=== PATIENT | male | born 1940 | race Caucasian/White ===

== ENCOUNTER → 2016-07-07 | Outpatient (CLI) | payer BC | END | disposition home or self-care (01) | LOC: LAB 11:02 | PROVIDERS: ATTEND Urology | DX: C61 Malignant neoplasm of prostate (principal); R97.20 Elevated prostate specific antigen [PSA] | CPT/HCPCS: 84153 ==

== ENCOUNTER 2016-08-08 10:09 | Inpatient (IN) | payer BC ==
[~2016-08-08] VITALS: Ht 180.3 cm; Wt 100.4 kg
[2016-08-08] MEDS ORDERED: SODIUM CHLORIDE 0.9% 1,000 ML IV ONE (10:56)
[2016-08-08] MEDS ORDERED: cloNIDine HCL 0.1 MG TAB PO ONE (11:30)
[2016-08-08 11:39] LABS: Hematocrit 34.9 % (41.0-53.0); Hemoglobin 11.4 g/dL (13.5-17.5); Mean Corpuscular Hgb Conc. 32.7 g/dL (32.0-36.0); Mean Corpuscular Volume 88.8 fL (80.0-100.0); Mean Platelet Volume 8.3 fL (7.4-10.4); Platelet Count (auto) 510 10^3/uL (140-450); Red Cell Distribution Width 17.1 % (11.6-16.0); SUSPECT VIEW TRANSMISSION; White Blood Cell 23.5 10^3/uL (4.4-10.8)
[2016-08-08 11:52] LABS: Partial Thromboplastin Time 27.2 sec (22.64-33.71)
[2016-08-08 11:55] LABS: Metamyelocytes % 0; Myelocytes % 0; Promyelocytes % 0; Reactive Lymphocytes 0
[2016-08-08 11:56] LABS: INR 1.25 (0.9-1.15); Prothrombin Time 12.9 sec (9.37-12.3)
[2016-08-08 11:59] LABS: Albumin 2.3 g/dL (3.4-5.0); Alkaline Phosphatase 836 U/L (45-117); Amylase 32 U/L (25-115); Anion Gap 18 (5-15); Aspartate Aminotransferase 97 U/L (15-37); Blood Urea Nitrogen 34 mg/dL (7-18); Calcium 9.1 mg/dL (8.5-10.1); Carbon Dioxide 22 mmol/L (21-32); Chloride 101 mmol/L (98-107); GFR African American 59 mL/min; GFR Non-African American 49 mL/min; Glucose 159 mg/dL (74-106); Potassium 3.8 mmol/L (3.5-5.1); Sodium 141 mmol/L (136-145); Total Protein 7.8 g/dL (6.4-8.2)
[2016-08-08] MEDS ORDERED: METOPROLOL TARTRATE 25 MG TAB PO ONE (13:00)
[2016-08-08] MEDS ORDERED: DEXTROSE (50%) 50ML SYRG IV PRN (13:00)
[2016-08-08] MEDS ORDERED: amLODIPine BESYLATE 5 MG TAB PO ONE (13:00)
[2016-08-08] MEDS ORDERED: FUROSEMIDE 40 MG/4 ML VIAL IV ONE (13:00)
[2016-08-08 13:32] LABS: Platelet Estimate Increased
[2016-08-08] MEDS: cefTRIAXone 1GM/50ML D5W 50 ML IV SCH (13:51)
[2016-08-08] MEDS: metroNIDAZOLE 500MG/100ML 100 ML IV SCH ×2 (17:14→21:53)
[2016-08-08] MEDS: PANTOPRAZOLE 40 MG TAB PO SCH ×2 (17:17→21:53)
[2016-08-08] MEDS: ACCU-CHEK COMFORT CURVE STRIP VI SCH (17:19)
[2016-08-08] MEDS: InsuLIN REG 1unit/0.01ml Soln (100units/ml) SC SCH (17:29)
[2016-08-08 18:13] VITALS: BP 162/87
[2016-08-08] MEDS ORDERED: GLYB5TAB8 PO (18:32)
[2016-08-08] MEDS ORDERED: METF-312 PO (18:32)
[2016-08-08] MEDS ORDERED: TRIA37.575 PO (18:32)
[2016-08-08] MEDS ORDERED: LISI-646 PO (18:32)
[2016-08-08] MEDS: METOPROLOL TARTRATE 25 MG TAB PO SCH (21:53)
[2016-08-08 22:00] VITALS: BP 152/74
[2016-08-09] MEDS: ACCU-CHEK COMFORT CURVE STRIP VI SCH ×5 (00:51→23:46)
[2016-08-09] MEDS: InsuLIN REG 1unit/0.01ml Soln (100units/ml) SC SCH ×5 (00:53→23:46)
[2016-08-09 05:00] VITALS: BP 199/100
[2016-08-09] MEDS: metroNIDAZOLE 500MG/100ML 100 ML IV SCH ×3 (05:36→21:33)
[2016-08-09] MEDS: cloNIDine HCL 0.1 MG TAB PO PRN (05:37)
[2016-08-09 06:21] LABS: Partial Thromboplastin Time 29.1 sec (22.64-33.71)
[2016-08-09 06:26] LABS: INR 1.22 (0.9-1.15); Prothrombin Time 12.6 sec (9.37-12.3)
[2016-08-09 09:00] VITALS: BP 158/88
[2016-08-09] MEDS: FUROSEMIDE 40 MG/4 ML VIAL IV SCH (09:28)
[2016-08-09] MEDS: amLODIPine BESYLATE 5 MG TAB PO SCH (09:29)
[2016-08-09] MEDS: PANTOPRAZOLE 40 MG TAB PO SCH ×2 (09:29→21:32)
[2016-08-09] MEDS: METOPROLOL TARTRATE 25 MG TAB PO SCH ×2 (09:30→21:33)
[2016-08-09] MEDS: cefTRIAXone 1GM/50ML D5W 50 ML IV SCH (09:31)
[2016-08-09] MEDS ORDERED: INFLUENZA QUAD 2016-2017 0.5 ML SYRG IM ONE (10:00)
[2016-08-09] MEDS ORDERED: PNEUMOCOCCAL VACC POLYS 25 MCG/0.5 ML VIAL IM ONE (10:00)
[2016-08-09] MEDS ORDERED: LIDOCAINE 2%HCL (LOCAL ANESTH.) INJ 20ML MDV ONE (12:46)
[2016-08-09] MEDS ORDERED: fentaNYL CITRATE 100 MCG/2 ML VL ONE (12:46)
[2016-08-09] MEDS ORDERED: MIDAZOLAM HCL 1MG/1ML-2 ML VIAL ONE (12:46)
[2016-08-09 13:00] VITALS: BP 193/103
[2016-08-09 15:46] LABS: Urine Bilirubin Negative (Negative); Urine Blood Negative /uL (Negative); Urine Color Yellow (Yellow); Urine Glucose Normal (Normal); Urine Hyaline Cast FEW /lpf (0 - 2); Urine Ketone Negative (Negative); Urine Mucus FEW (None Seen); Urine Nitrite Negative (Negative); Urine RBC <1 /hpf (0 - 3); Urine Urobilinogen Normal (Negative)
[2016-08-09 17:00] VITALS: BP 148/86
[2016-08-09 22:00] VITALS: BP 147/77
[2016-08-10] VITALS (7 sets, daily range): BP systolic 141–179; BP diastolic 66–86
[2016-08-10] MEDS: metroNIDAZOLE 500MG/100ML 100 ML IV SCH (05:22)
[2016-08-10] MEDS: cloNIDine HCL 0.1 MG TAB PO PRN (05:23)
[2016-08-10] MEDS: ACCU-CHEK COMFORT CURVE STRIP VI SCH ×3 (05:51→18:16)
[2016-08-10] MEDS: InsuLIN REG 1unit/0.01ml Soln (100units/ml) SC SCH ×3 (06:15→18:16)
[2016-08-10 06:39] LABS: Basophils # (auto) 0 uL; Basophils % (auto) 0.2 % (0.0-2.0); Eosinophils # (auto) 0.3 uL; Hematocrit 33.3 % (41.0-53.0); Hemoglobin 10.9 g/dL (13.5-17.5); Lymphocytes # (auto) 0.8 uL; Lymphocytes % (auto) 4.8 % (10.0-50.0); Mean Corpuscular Hemoglobin 29.2 pg (28.0-32.0); Mean Corpuscular Hgb Conc. 32.8 g/dL (32.0-36.0); Mean Platelet Volume 8.7 fL (7.4-10.4); Monocytes # (auto) 1.1 uL; Neutrophils # (auto) 15.3 uL; Platelet Count (auto) 470 10^3/uL (140-450); Red Cell Distribution Width 16.8 % (11.6-16.0); White Blood Cell 17.5 10^3/uL (4.4-10.8)
[2016-08-10 06:40] LABS: BUN/Creatinine Ratio 16.6; Calcium 8.1 mg/dL (8.5-10.1); Potassium 3.2 mmol/L (3.5-5.1)
[2016-08-10 06:43] LABS: Bilirubin, Total 0.7 mg/dL (0.2-1.0); Total Protein 6.7 g/dL (6.4-8.2)
[2016-08-10] MEDS: FUROSEMIDE 40 MG/4 ML VIAL IV SCH (10:06)
[2016-08-10] MEDS: cefTRIAXone 1GM/50ML D5W 50 ML IV SCH (10:06)
[2016-08-10] MEDS: amLODIPine BESYLATE 5 MG TAB PO SCH (10:07)
[2016-08-10] MEDS: PANTOPRAZOLE 40 MG TAB PO SCH ×2 (10:07→22:01)
[2016-08-10] MEDS: METOPROLOL TARTRATE 25 MG TAB PO SCH ×2 (10:07→22:01)
[2016-08-10] MEDS ORDERED: POTASSIUM CHL 20 Meq TABLET PO ONE (13:15)
[2016-08-10] MEDS: metroNIDAZOLE 500 MG TAB PO SCH ×2 (14:00→22:01)
[2016-08-10] MEDS: FLORASTOR (S. BOULARDII) 250 MG CAP PO SCH (22:00)
[2016-08-11] VITALS (7 sets, daily range): BP systolic 155–175; BP diastolic 77–89
[2016-08-11] MEDS: metroNIDAZOLE 500 MG TAB PO SCH ×3 (05:11→22:33)
[2016-08-11 05:32] LABS: Basophils # (auto) 0 uL; Basophils % (auto) 0.2 % (0.0-2.0); Eosinophils # (auto) 0.3 uL; Eosinophils % (auto) 1.9 % (0.0-7.0); Hematocrit 30.8 % (41.0-53.0); Hemoglobin 9.9 g/dL (13.5-17.5); Lymphocytes # (auto) 0.8 uL; Mean Corpuscular Hemoglobin 28.7 pg (28.0-32.0); Mean Corpuscular Hgb Conc. 32.2 g/dL (32.0-36.0); Mean Corpuscular Volume 89.2 fL (80.0-100.0); Mean Platelet Volume 8.6 fL (7.4-10.4); Monocytes # (auto) 1.1 uL; Monocytes % (auto) 6.6 % (0.0-12.0); Neutrophils # (auto) 14.7 uL; Neutrophils % (auto) 86.3 % (37.0-80.0); Platelet Count (auto) 438 10^3/uL (140-450)
[2016-08-11 05:52] LABS: Calcium 7.8 mg/dL (8.5-10.1); Potassium 3.1 mmol/L (3.5-5.1)
[2016-08-11] MEDS: ACCU-CHEK COMFORT CURVE STRIP VI SCH ×5 (05:59→23:26)
[2016-08-11] MEDS: InsuLIN REG 1unit/0.01ml Soln (100units/ml) SC SCH ×5 (06:02→23:30)
[2016-08-11] MEDS ORDERED: POTASSIUM CHL 20 Meq TABLET PO ONE (10:15)
[2016-08-11] MEDS: amLODIPine BESYLATE 5 MG TAB PO SCH (10:44)
[2016-08-11] MEDS: FLORASTOR (S. BOULARDII) 250 MG CAP PO SCH ×2 (10:44→22:31)
[2016-08-11] MEDS: PANTOPRAZOLE 40 MG TAB PO SCH ×2 (10:44→22:33)
[2016-08-11] MEDS: METOPROLOL TARTRATE 25 MG TAB PO SCH ×2 (10:45→22:33)
[2016-08-12] VITALS (7 sets, daily range): BP systolic 104–166; BP diastolic 71–90
[2016-08-12] MEDS: ACCU-CHEK COMFORT CURVE STRIP VI SCH ×3 (06:08→18:00)
[2016-08-12] MEDS: InsuLIN REG 1unit/0.01ml Soln (100units/ml) SC SCH ×3 (06:11→18:00)
[2016-08-12] MEDS: metroNIDAZOLE 500 MG TAB PO SCH ×3 (06:12→21:09)
[2016-08-12 07:23] LABS: Basophils # (auto) 0 uL; Basophils % (auto) 0.2 % (0.0-2.0); Eosinophils # (auto) 0.4 uL; Hematocrit 31.9 % (41.0-53.0); Hemoglobin 10.3 g/dL (13.5-17.5); Lymphocytes # (auto) 0.9 uL; Lymphocytes % (auto) 4.7 % (10.0-50.0); Mean Corpuscular Hemoglobin 28.9 pg (28.0-32.0); Mean Corpuscular Hgb Conc. 32.5 g/dL (32.0-36.0); Mean Corpuscular Volume 89.2 fL (80.0-100.0); Mean Platelet Volume 8.5 fL (7.4-10.4); Monocytes # (auto) 1.1 uL; Monocytes % (auto) 5.8 % (0.0-12.0); Neutrophils # (auto) 16.7 uL; Neutrophils % (auto) 87.3 % (37.0-80.0); Platelet Count (auto) 453 10^3/uL (140-450); Red Cell Distribution Width 17.1 % (11.6-16.0); White Blood Cell 19.1 10^3/uL (4.4-10.8)
[2016-08-12 07:43] LABS: BUN/Creatinine Ratio 17.3; Calcium 8.5 mg/dL (8.5-10.1); Potassium 3.6 mmol/L (3.5-5.1)
[2016-08-12] MEDS ORDERED: FLEET ENEMA(ADULT) 135 ML PR ONE ×3 (08:00→16:15)
[2016-08-12] MEDS ORDERED: fentaNYL CITRATE 100 MCG/2 ML VL ONE (08:23)
[2016-08-12] MEDS ORDERED: SODIUM CHLORIDE LOCK 10 ML ONE (08:23)
[2016-08-12] MEDS ORDERED: diphenhdrAMINE HCL 50 MG/1 ML VL ONE (08:23)
[2016-08-12] MEDS: FLORASTOR (S. BOULARDII) 250 MG CAP PO SCH ×2 (10:00→21:11)
[2016-08-12] MEDS: METOPROLOL TARTRATE 25 MG TAB PO SCH ×3 (10:00→21:10)
[2016-08-12] MEDS: PANTOPRAZOLE 40 MG TAB PO SCH ×2 (10:00→21:10)
[2016-08-12] MEDS: amLODIPine BESYLATE 5 MG TAB PO SCH (13:48)
[2016-08-12] MEDS: MIDAZOLAM HCL 5 MG/ML-1ML VIAL ONE ×2 (17:18→17:20)
[2016-08-13] MEDS: ACCU-CHEK COMFORT CURVE STRIP VI SCH ×5 (00:14→23:31)
[2016-08-13] MEDS: InsuLIN REG 1unit/0.01ml Soln (100units/ml) SC SCH ×4 (00:16→17:55)
[2016-08-13 04:53] VITALS: BP 157/80
[2016-08-13 05:55] LABS: Basophils # (auto) 0.1 uL; Basophils % (auto) 0.3 % (0.0-2.0); Eosinophils # (auto) 0.4 uL; Eosinophils % (auto) 2.1 % (0.0-7.0); Hematocrit 33.5 % (41.0-53.0); Hemoglobin 10.8 g/dL (13.5-17.5); Lymphocytes # (auto) 0.8 uL; Lymphocytes % (auto) 4.3 % (10.0-50.0); Mean Corpuscular Hemoglobin 29.2 pg (28.0-32.0); Mean Corpuscular Hgb Conc. 32.2 g/dL (32.0-36.0); Mean Corpuscular Volume 90.5 fL (80.0-100.0); Mean Platelet Volume 8.8 fL (7.4-10.4); Monocytes # (auto) 1.1 uL; Monocytes % (auto) 5.5 % (0.0-12.0); Neutrophils # (auto) 17.2 uL; Neutrophils % (auto) 87.8 % (37.0-80.0); Platelet Count (auto) 448 10^3/uL (140-450); Red Cell Distribution Width 16.9 % (11.6-16.0); White Blood Cell 19.6 10^3/uL (4.4-10.8)
[2016-08-13] MEDS: metroNIDAZOLE 500 MG TAB PO SCH ×3 (06:08→23:29)
[2016-08-13 06:13] LABS: Potassium 3.4 mmol/L (3.5-5.1)
[2016-08-13 06:27] LABS: Albumin 1.9 g/dL (3.4-5.0); BUN/Creatinine Ratio 17.4; Calcium 8.3 mg/dL (8.5-10.1)
[2016-08-13 06:30] LABS: Bilirubin, Total 0.8 mg/dL (0.2-1.0); Total Protein 6.4 g/dL (6.4-8.2)
[2016-08-13 09:36] VITALS: BP 161/91
[2016-08-13] MEDS: amLODIPine BESYLATE 5 MG TAB PO SCH (09:48)
[2016-08-13] MEDS: FLORASTOR (S. BOULARDII) 250 MG CAP PO SCH ×2 (09:48→23:30)
[2016-08-13] MEDS: METOPROLOL TARTRATE 25 MG TAB PO SCH ×2 (09:48→23:30)
[2016-08-13] MEDS: PANTOPRAZOLE 40 MG TAB PO SCH ×2 (09:48→23:31)
[2016-08-13] MEDS ORDERED: POTASSIUM CHL 20 Meq TABLET PO ONE (10:15)
[2016-08-13 11:04] LABS: B-Type Natriuretic Peptide 188.27 pg/mL (0-100)
[2016-08-13] MEDS: SODIUM CHLORIDE 0.9% 1,000 ML IV SCH ×2 (11:12→20:15)
[2016-08-13 14:28] VITALS: BP 161/82
[2016-08-13 17:11] VITALS: BP 157/77
[2016-08-13 20:00] VITALS: BP 151/87
[2016-08-13 21:30] VITALS: BP 169/83
[2016-08-14] MEDS: InsuLIN REG 1unit/0.01ml Soln (100units/ml) SC SCH ×5 (00:01→23:55)
[2016-08-14 05:00] VITALS: BP 156/79
[2016-08-14] MEDS: ACCU-CHEK COMFORT CURVE STRIP VI SCH ×4 (06:00→23:49)
[2016-08-14] MEDS: SODIUM CHLORIDE 0.9% 1,000 ML IV SCH ×2 (06:15→16:27)
[2016-08-14] MEDS: metroNIDAZOLE 500 MG TAB PO SCH (06:28)
[2016-08-14 08:00] VITALS: BP 140/80
[2016-08-14 09:00] VITALS: BP 140/81
[2016-08-14] MEDS: FLORASTOR (S. BOULARDII) 250 MG CAP PO SCH ×2 (10:10→22:00)
[2016-08-14] MEDS: PANTOPRAZOLE 40 MG TAB PO SCH ×2 (10:10→22:01)
[2016-08-14] MEDS: amLODIPine BESYLATE 5 MG TAB PO SCH (10:11)
[2016-08-14] MEDS: METOPROLOL TARTRATE 25 MG TAB PO SCH ×2 (10:11→22:01)
[2016-08-14] MEDS: VANCOMYCIN HCL 125MG/5ML ORAL SOL GT SCH ×3 (12:00→23:31)
[2016-08-14 13:00] VITALS: BP 146/91
[2016-08-14 17:05] VITALS: BP 166/97
[2016-08-14 22:00] VITALS: BP 153/90
[2016-08-14] MEDS: cloNIDine HCL 0.1 MG TAB PO PRN (23:55)
[2016-08-15] MEDS: SODIUM CHLORIDE 0.9% 1,000 ML IV SCH ×3 (04:50→21:15)
[2016-08-15 05:00] VITALS: BP 159/84
[2016-08-15] MEDS: VANCOMYCIN HCL 125MG/5ML ORAL SOL GT SCH ×3 (05:13→18:25)
[2016-08-15] MEDS: ACCU-CHEK COMFORT CURVE STRIP VI SCH ×3 (05:20→18:26)
[2016-08-15] MEDS: InsuLIN REG 1unit/0.01ml Soln (100units/ml) SC SCH ×3 (05:26→18:25)
[2016-08-15 06:27] LABS: Basophils # (auto) 0.1 uL; Basophils % (auto) 0.4 % (0.0-2.0); Eosinophils # (auto) 0.3 uL; Eosinophils % (auto) 1.6 % (0.0-7.0); Hematocrit 31.7 % (41.0-53.0); Hemoglobin 10.4 g/dL (13.5-17.5); Lymphocytes % (auto) 5.1 % (10.0-50.0); Mean Corpuscular Hemoglobin 29.2 pg (28.0-32.0); Mean Corpuscular Hgb Conc. 32.7 g/dL (32.0-36.0); Mean Corpuscular Volume 89.2 fL (80.0-100.0); Mean Platelet Volume 8.6 fL (7.4-10.4); Monocytes # (auto) 1.1 uL; Monocytes % (auto) 5.8 % (0.0-12.0); Neutrophils # (auto) 17.4 uL; Neutrophils % (auto) 87.1 % (37.0-80.0); Platelet Count (auto) 499 10^3/uL (140-450); Red Cell Distribution Width 17.7 % (11.6-16.0); SUSPECT VIEW TRANSMISSION; White Blood Cell 19.9 10^3/uL (4.4-10.8)
[2016-08-15 07:42] LABS: Albumin 1.8 g/dL (3.4-5.0); BUN/Creatinine Ratio 17.4; Bilirubin, Total 1.4 mg/dL (0.2-1.0); Calcium 8.3 mg/dL (8.5-10.1); Potassium 3.9 mmol/L (3.5-5.1); Total Protein 6.5 g/dL (6.4-8.2)
[2016-08-15 08:00] VITALS: BP 140/81
[2016-08-15 09:00] VITALS: BP 166/88
[2016-08-15] MEDS ORDERED: ENOXAPARIN SOD 100 MG/1 ML SYRINGE SC ONE (09:45)
[2016-08-15] MEDS: metroNIDAZOLE 500 MG TAB PO SCH ×4 (10:00→21:14)
[2016-08-15] MEDS: PANTOPRAZOLE 40 MG TAB PO SCH ×2 (12:55→21:14)
[2016-08-15] MEDS: FLORASTOR (S. BOULARDII) 250 MG CAP PO SCH ×2 (12:55→21:14)
[2016-08-15] MEDS: METOPROLOL TARTRATE 25 MG TAB PO SCH ×2 (12:56→21:14)
[2016-08-15] MEDS: amLODIPine BESYLATE 5 MG TAB PO SCH (12:56)
[2016-08-15 22:00] VITALS: BP 148/82
[2016-08-16] MEDS: VANCOMYCIN HCL 125MG/5ML ORAL SOL GT SCH ×4 (00:15→18:42)
[2016-08-16] MEDS: ACCU-CHEK COMFORT CURVE STRIP VI SCH ×4 (00:25→18:22)
[2016-08-16] MEDS: InsuLIN REG 1unit/0.01ml Soln (100units/ml) SC SCH ×4 (00:32→18:00)
[2016-08-16 05:00] VITALS: BP 151/74
[2016-08-16] MEDS: metroNIDAZOLE 500 MG TAB PO SCH ×3 (06:02→22:18)
[2016-08-16 06:34] LABS: Basophils # (auto) 0.1 uL; Basophils % (auto) 0.4 % (0.0-2.0); Eosinophils # (auto) 0.4 uL; Hematocrit 29.9 % (41.0-53.0); Hemoglobin 9.9 g/dL (13.5-17.5); Lymphocytes # (auto) 0.8 uL; Lymphocytes % (auto) 4.4 % (10.0-50.0); Mean Corpuscular Hemoglobin 29.2 pg (28.0-32.0); Mean Corpuscular Hgb Conc. 33.1 g/dL (32.0-36.0); Mean Corpuscular Volume 88.2 fL (80.0-100.0); Mean Platelet Volume 8.5 fL (7.4-10.4); Monocytes # (auto) 1.1 uL; Monocytes % (auto) 5.5 % (0.0-12.0); Neutrophils % (auto) 87.7 % (37.0-80.0); Platelet Count (auto) 506 10^3/uL (140-450); Red Cell Distribution Width 17.2 % (11.6-16.0); White Blood Cell 19.4 10^3/uL (4.4-10.8)
[2016-08-16 07:14] LABS: BUN/Creatinine Ratio 16.6; Potassium 3.8 mmol/L (3.5-5.1)
[2016-08-16] MEDS: cloNIDine HCL 0.1 MG TAB PO PRN (08:06)
[2016-08-16] MEDS: SODIUM CHLORIDE 0.9% 1,000 ML IV SCH ×2 (08:15→18:22)
[2016-08-16 08:49] VITALS: BP 177/91
[2016-08-16] MEDS: amLODIPine BESYLATE 5 MG TAB PO SCH (10:22)
[2016-08-16] MEDS: FLORASTOR (S. BOULARDII) 250 MG CAP PO SCH ×2 (10:23→22:18)
[2016-08-16] MEDS: METOPROLOL TARTRATE 25 MG TAB PO SCH ×2 (10:23→22:19)
[2016-08-16] MEDS: PANTOPRAZOLE 40 MG TAB PO SCH (10:23)
[2016-08-16] MEDS ORDERED: ENOXAPARIN SOD 30 MG/0.3 ML SYRINGE SC ONE (10:30)
[2016-08-16 13:00] VITALS: BP 151/70
[2016-08-16 17:00] VITALS: BP 164/77
[2016-08-16 22:20] VITALS: BP 159/83
[2016-08-17] MEDS: VANCOMYCIN HCL 125MG/5ML ORAL SOL GT SCH ×5 (00:43→23:31)
[2016-08-17] MEDS: InsuLIN REG 1unit/0.01ml Soln (100units/ml) SC SCH ×5 (00:55→23:50)
[2016-08-17 05:21] VITALS: BP 164/90
[2016-08-17] MEDS: metroNIDAZOLE 500 MG TAB PO SCH ×3 (05:49→23:27)
[2016-08-17] MEDS: SODIUM CHLORIDE 0.9% 1,000 ML IV SCH (05:49)
[2016-08-17] MEDS: ACCU-CHEK COMFORT CURVE STRIP VI SCH ×5 (05:57→23:50)
[2016-08-17 06:34] LABS: Hematocrit 29.9 % (41.0-53.0); Hemoglobin 9.8 g/dL (13.5-17.5); Mean Corpuscular Hemoglobin 29.2 pg (28.0-32.0); Mean Corpuscular Hgb Conc. 32.8 g/dL (32.0-36.0); Mean Platelet Volume 8.1 fL (7.4-10.4); Platelet Count (auto) 528 10^3/uL (140-450); Red Cell Distribution Width 17.9 % (11.6-16.0); White Blood Cell 18.7 10^3/uL (4.4-10.8)
[2016-08-17 06:49] LABS: Metamyelocytes % 0; Myelocytes % 0; Promyelocytes % 0; Reactive Lymphocytes 0
[2016-08-17 07:06] LABS: BUN/Creatinine Ratio 16.1; Calcium 7.9 mg/dL (8.5-10.1); Potassium 3.8 mmol/L (3.5-5.1)
[2016-08-17] MEDS: cloNIDine HCL 0.1 MG TAB PO PRN (08:39)
[2016-08-17] MEDS: ENOXAPARIN SOD 30 MG/0.3 ML SYRINGE SC SCH (10:32)
[2016-08-17] MEDS: FLORASTOR (S. BOULARDII) 250 MG CAP PO SCH ×2 (10:32→23:27)
[2016-08-17] MEDS: PANTOPRAZOLE 40 MG TAB PO SCH (10:33)
[2016-08-17] MEDS: METOPROLOL TARTRATE 25 MG TAB PO SCH ×2 (10:34→23:28)
[2016-08-17] MEDS: amLODIPine BESYLATE 5 MG TAB PO SCH (10:34)
[2016-08-17] MEDS ORDERED: oxyCODONE ER 10 MG TAB PO ONE (10:45)
[2016-08-17] MEDS ORDERED: MORPHINE SULF INJ 2 MG/ML SYRINGE 1ML IV PRN (10:45)
[2016-08-17 13:00] VITALS: BP 154/79
[2016-08-17 13:15] LABS: Platelet Estimate Increased
[2016-08-17 13:16] LABS: Large Platelets FEW; Stomatocytes Few
[2016-08-17 16:45] VITALS: BP 148/76
[2016-08-17 21:33] VITALS: BP 146/76
[2016-08-17] MEDS: oxyCODONE ER 10 MG TAB PO SCH (23:28)
[2016-08-18 05:42] VITALS: BP 153/82
[2016-08-18] MEDS: ACCU-CHEK COMFORT CURVE STRIP VI SCH ×4 (06:00→23:44)
[2016-08-18] MEDS: InsuLIN REG 1unit/0.01ml Soln (100units/ml) SC SCH ×4 (06:00→23:44)
[2016-08-18 06:28] LABS: Hematocrit 32.2 % (41.0-53.0); Hemoglobin 10.4 g/dL (13.5-17.5); Mean Corpuscular Hemoglobin 29.2 pg (28.0-32.0); Mean Corpuscular Hgb Conc. 32.2 g/dL (32.0-36.0); Mean Corpuscular Volume 90.7 fL (80.0-100.0); Mean Platelet Volume 8.7 fL (7.4-10.4); Platelet Count (auto) 543 10^3/uL (140-450); Red Cell Distribution Width 18.1 % (11.6-16.0); SUSPECT VIEW TRANSMISSION; White Blood Cell 18.8 10^3/uL (4.4-10.8)
[2016-08-18 06:32] LABS: Metamyelocytes % 0; Myelocytes % 0; Promyelocytes % 0; Reactive Lymphocytes 0
[2016-08-18] MEDS: metroNIDAZOLE 500 MG TAB PO SCH ×3 (06:33→23:22)
[2016-08-18] MEDS: VANCOMYCIN HCL 125MG/5ML ORAL SOL GT SCH ×4 (06:33→23:59)
[2016-08-18 07:04] LABS: BUN/Creatinine Ratio 15.3; Calcium 8.2 mg/dL (8.5-10.1)
[2016-08-18 07:49] LABS: Platelet Estimate Increased
[2016-08-18 07:52] LABS: Stomatocytes Few
[2016-08-18 08:00] VITALS: BP 152/77
[2016-08-18] MEDS: ENOXAPARIN SOD 30 MG/0.3 ML SYRINGE SC SCH (08:41)
[2016-08-18] MEDS: FLORASTOR (S. BOULARDII) 250 MG CAP PO SCH ×2 (08:42→23:20)
[2016-08-18] MEDS: METOPROLOL TARTRATE 25 MG TAB PO SCH ×2 (08:42→23:21)
[2016-08-18] MEDS: amLODIPine BESYLATE 5 MG TAB PO SCH (08:42)
[2016-08-18] MEDS: PANTOPRAZOLE 40 MG TAB PO SCH (08:42)
[2016-08-18] MEDS: oxyCODONE ER 10 MG TAB PO SCH ×2 (08:43→23:21)
[2016-08-18 09:10] VITALS: BP 152/77
[2016-08-18] MEDS ORDERED: SODIUM CHLORIDE 0.9% 1,000 ML IV SCH (10:15)
[2016-08-18 11:46] VITALS: BP 161/82
[2016-08-18 17:01] VITALS: BP 156/77
[2016-08-18 21:37] VITALS: BP 159/99
[2016-08-19 04:32] VITALS: BP 149/84
[2016-08-19] MEDS: ACCU-CHEK COMFORT CURVE STRIP VI SCH ×2 (06:00→12:12)
[2016-08-19] MEDS: InsuLIN REG 1unit/0.01ml Soln (100units/ml) SC SCH ×2 (06:00→12:00)
[2016-08-19] MEDS: metroNIDAZOLE 500 MG TAB PO SCH ×2 (06:01→14:00)
[2016-08-19] MEDS: VANCOMYCIN HCL 125MG/5ML ORAL SOL GT SCH ×3 (06:02→12:12)
[2016-08-19 07:00] VITALS: BP 149/75
[2016-08-19 08:00] VITALS: BP 149/75
[2016-08-19 09:00] VITALS: BP 149/75
[2016-08-19] MEDS: FLORASTOR (S. BOULARDII) 250 MG CAP PO SCH (10:24)
[2016-08-19] MEDS: oxyCODONE ER 10 MG TAB PO SCH (10:25)
[2016-08-19] MEDS: METOPROLOL TARTRATE 25 MG TAB PO SCH (10:25)
[2016-08-19] MEDS: ENOXAPARIN SOD 30 MG/0.3 ML SYRINGE SC SCH (10:26)
[2016-08-19] MEDS: PANTOPRAZOLE 40 MG TAB PO SCH (10:26)
[2016-08-19] MEDS: amLODIPine BESYLATE 5 MG TAB PO SCH (10:26)
[2016-08-19 13:00] VITALS: BP 128/64
[2016-08-19 14:31] VITALS: BP 140/65
== END 2016-08-19 16:00 | disposition home or self-care (01) | DRG 871 ==
LOC: EDBD 10:09 → ER 10:10 → OVERFLOW 10:11 → TELE-E-ADS 15:20 → EAST 16:45
PROVIDERS: ADMIT Internal Medicine; ATTEND Internal Medicine
PROC: 0FB13ZX Excision of Right Lobe Liver, Percutaneous Approach, Diagnostic (ICD-10-PCS; 2016-08-09)
PROC: 0DBP8ZX Excision of Rectum, Via Natural or Artificial Opening Endoscopic, Diagnostic (ICD-10-PCS; principal; 2016-08-12 17:13)
DX: A41.9 Sepsis, unspecified organism (principal); E43 Unspecified severe protein-calorie malnutrition; I50.31 Acute diastolic (congestive) heart failure; C18.9 Malignant neoplasm of colon, unspecified; A04.7 Enterocolitis due to Clostridium difficile; C78.00 Secondary malignant neoplasm of unspecified lung; C78.7 Secondary malignant neoplasm of liver and intrahepatic bile duct; N13.30 Unspecified hydronephrosis; I13.0 Hypertensive heart and chronic kidney disease with heart failure and stage 1 through stage 4 chronic kidney disease, or unspecified chronic kidney disease; E11.22 Type 2 diabetes mellitus with diabetic chronic kidney disease; E66.9 Obesity, unspecified; K57.90 Diverticulosis of intestine, part unspecified, without perforation or abscess without bleeding; I70.0 Atherosclerosis of aorta; I70.8 Atherosclerosis of other arteries; N18.3 Chronic kidney disease, stage 3 (moderate); K40.90 Unilateral inguinal hernia, without obstruction or gangrene, not specified as recurrent; Z85.46 Personal history of malignant neoplasm of prostate; Z80.0 Family history of malignant neoplasm of digestive organs; Z68.30 Body mass index [BMI] 30.0-30.9, adult; Z23 Encounter for immunization
CPT/HCPCS: 10022; 36415; 71010; 74000; 74150; 74176; 77012; 78582; 80048; 80053; 81001; 82150; 82378; 82962; 83036; 83605; 83690; 83880; 84484; 85007; 85025; 85027; 85610; 85730; 87040; 87493; 88307; 88341; 93005; 93306; 96361; 96374; 97001; 97110; 97530; 99291; J0696; J1815; J2250; J3490